=== PATIENT | female | born 1995 | race Caucasian/White ===

== ENCOUNTER 2018-11-13 21:48 | Emergency (ER) | payer OTHER, SELFPAY ==
[2018-11-13 21:53] VITALS: BP 124/74; PULSE 98; RESP 20; TEMP 36.9; O2SAT 100
[2018-11-13 21:59] VITALS: PULSE 98; RESP 20; TEMP 36.9; O2SAT 100; BMI 32.2
--- NOTE | 2018-11-13 22:25 | DI.RAD.S_ITS ---
PROCEDURE: XR CHEST 2V INDICATIONS: chest pain TECHNIQUE: 2 views of the chest were acquired. COMPARISON: None. FINDINGS: Surgical changes and devices: None. Lungs and pleura: Lungs are clear. No pleural effusions or pneumothorax. Mediastinum: Mediastinal contours are normal. Heart size is normal. Bones and chest wall: No suspicious bony abnormalities. Soft tissues appear unremarkable. IMPRESSION: No acute cardiopulmonary disease. Dictated by: Seth Garcias M.D. on 11/14/2018 at 9:37 Approved by: Seth Garcias M.D. on 11/14/2018 at 9:37
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
[2018-11-13 23:24] VITALS: BP 115/63; PULSE 85; RESP 15; TEMP 36.9; O2SAT 100
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
== END 2018-11-13 23:25 | disposition home or self-care (01) ==
PROVIDERS: Emergency Provider Emergency Medicine
DX: R07.89 Other chest pain (principal)
CPT/HCPCS: 71046; 93005; 99282; 99284

== ENCOUNTER 2018-11-29 10:12 | Emergency (ER) | payer OTHER, SELFPAY ==
[2018-11-29 10:18] VITALS: BP 110/76; PULSE 86; RESP 16; TEMP 36.6; O2SAT 100
--- NOTE | 2018-11-29 12:47 | ED.HA ---
HPI - Headache <PIYUSH Bobby - Last Filed: 11/29/18 21:54> General Chief Complaint: Headache Stated Complaint: migraine Time Seen by Provider: 11/29/18 12:47 Source: patient Mode of arrival: ambulatory Limitations: no limitations History of Present Illness HPI Narrative: 23-year-old female with history of migraines as a nonsmoker for complaint of having migraine headache that started this morning at about 630. She states she has had nausea and vomiting with the headache no aura. She states that her headache is typical of her migraines. She states that she used to have a prescription for Maxalt which helps with her headaches however she does not have a prescription at this time. She desires have a prescription for the Maxalt filled. She states that she needs to get back to work and would rather have a prescription for Maxalt and not IV fluids and migraine headache cocktail medications at this time. She has not had any nausea vomiting for the last 3 hr she states she can tolerate p.o. intake and that her symptoms are better at this time. No fevers or chills no head trauma. No other concerns or complaints at this timeframe. She denies any stressors relievers of her symptoms. Complaint: migraine Related Data Previous Rx's Medication Instructions Recorded rizatriptan [Maxalt-BUSINESS INTELLIGENCE ANALYST] See Rx Instructions .ROUTE 11/29/18 .COMPLEX #20 tab Allergies Allergy/AdvReac Type Severity Reaction Status Date / Time No Known Drug Allergies Allergy Verified 11/29/18 10:17 Review of Systems <PIYUSH Bobby - Last Filed: 11/29/18 21:54> Constitutional Denies chills, Denies fever(s), Denies lethargy and Denies weakness Eyes Denies change in vision, Denies eye discharge, Denies irritation and Denies loss of vision ENT Ears, Nose, Mouth, and Throat: Denies change in voice, Denies neck pain and Denies sore throat Cardiovascular Denies chest pain, Denies irregular heart rhythm, Denies lightheadedness, Denies palpitations, Denies dyspnea, Denies dyspnea on exertion and Denies orthopnea Respiratory Denies cough, Denies dyspnea, Denies dyspnea on exertion and Denies wheezing Gastrointestinal Gastrointestinal: Denies abdominal pain, Denies change in bowel habits, Denies diarrhea, Reports nausea and Reports vomiting Genitourinary Denies hematuria, Denies flank pain, Denies urinary incontinence and Denies urinary urgency Musculoskeletal Denies neck pain Integumentary/Breasts Denies pruritus, Denies erythema, Denies rash and Denies wounds Neurologic Denies confusion, Denies loss of vision and Denies weakness Psychiatric Denies anxiety, Denies confusion, Denies depression, Denies homicidal ideation and Denies suicidal ideation Endocrine Denies palpitations Hematologic/Lymphatic Denies easy bruising Allergic/Immunologic Denies wheezing PFSH <PIYUSH Bobby - Last Filed: 11/29/18 21:54> Social History Smoking Status: Never smoker Social History Smoking Status: Never smoker Exam <PIYUSH Bobby - Last Filed: 11/29/18 21:54> Initial Vital Signs Initial Vital Signs: Vital Signs Temperature 97.9 F 11/29/18 10:18 Pulse Rate 86 11/29/18 10:18 Respiratory Rate 16 11/29/18 10:18 Blood Pressure 110/76 11/29/18 10:18 Pulse Oximetry 100 11/29/18 10:18 Const General: cooperative and well developed Nutritional Appearance: well nourished Orientation: alert, awake, oriented x3 and not confused HENPR Mouth: oral mucosae normal and moist mucous membranes Eyes Conjunctivae: conjunctivae normal Sclera: sclerae normal Pupils: PERRL EOM: EOM intact bilaterally Resp Effort & Inspection: normal respiratory effort, able to speak in complete sentences, no respiratory distress and no use of accessory muscles Auscultation: clear to auscultation bilaterally, no rales, no rhonchi and no wheezes Cardio Rate: regular rate Rhythm: regular rhythm Heart Sounds: no click, no gallops, no murmurs and no rubs Pulses: normal peripheral pulses Skin General: no rashes or lesions noted, No jaundice and No petechiae Neuro General: alert, oriented x3, gait normal and no focal motor deficits Speech: speech normal <David Thomas DO - Last Filed: 11/30/18 20:49> Initial Vital Signs Initial Vital Signs: Vital Signs Temperature 97.9 F 11/29/18 10:18 Pulse Rate 86 11/29/18 10:18 Respiratory Rate 16 11/29/18 10:18 Blood Pressure 110/76 11/29/18 10:18 Pulse Oximetry 100 11/29/18 10:18 Course <PIYUSH Bobby - Last Filed: 11/29/18 21:54> Orders Ordered: Discontinued Medications Ondansetron HCl (Zofran Odt) 4 mg SL NOW ONE Stop: 11/29/18 12:55 Last Admin: 11/29/18 12:58 Dose: 4 mg Vital Signs - 8 hr 11/29/18 10:18 Temperature 97.9 F Pulse Rate 86 Respiratory Rate 16 Blood Pressure 110/76 Pulse Oximetry 100 <David Thomas DO - Last Filed: 11/30/18 20:49> Orders Ordered: Discontinued Medications Ondansetron HCl (Zofran Odt) 4 mg SL NOW ONE Stop: 11/29/18 12:55 Last Admin: 11/29/18 12:58 Dose: 4 mg Vital Signs - 8 hr 11/29/18 10:18 Temperature 97.9 F Pulse Rate 86 Respiratory Rate 16 Blood Pressure 110/76 Pulse Oximetry 100 MDM - Headache <PIYUSH Bobby - Last Filed: 11/29/18 21:54> MDM Narrative Medical decision making narrative: Patient was given some Zofran ODT in the emergency room was able to tolerate fluids. Prescription of Maxalt is provided. Follow up with primary care provider the next few days for re-evaluation. For any worsening symptoms return to the emergency room. Signs and symptoms presents as migraine headache typical of her migraine headache history. Discharge Plan Departure Patient Disposition: Home Clinical Impression: Migraine Qualifiers: Migraine type: unspecified Status migrainosus presence: without status migrainosus Intractability: not intractable Qualified Code(s): G43.909 - Migraine, unspecified, not intractable, without status migrainosus Discharge Date/Time: 11/29/18 13:13 Interventions: ED Discharge Assessment Last Done: 11/29/18 13:13 Instructions: DI for Migraine Activity Restrictions/Additional Instructions: Signs and symptoms presents as a migraine headache. Plenty of fluids and rest ibuprofen as needed for any discomfort. Prescription Maxalt is placed use as directed. Follow up with primary care provider next few days for re-evaluation. For any worsening symptoms return to the emergency room. Prescriptions: New rizatriptan [Maxalt-BUSINESS INTELLIGENCE ANALYST] 10 mg tablet,disintegrating See Rx Instructions .ROUTE .COMPLEX Qty: 20 RF: 0 Referrals: [facility] [Provider Group] <David Thomas DO - Last Filed: 11/30/18 20:49> Cosign ED Attending Kristopher Attestation: I was immediately available in the department for consultation. Documentation has been reviewed. I agree with assessment and plan.
[2018-11-29] MEDS: ONDANSETRON 4 MG ODT SL (12:58)
--- NOTE | 2018-11-29 13:01 | ED_ITS ---
HPI - Headache <PIYUSH Bobby - Last Filed: 11/29/18 21:54> General Chief Complaint: Headache Stated Complaint: migraine Time Seen by Provider: 11/29/18 12:47 Source: patient Mode of arrival: ambulatory Limitations: no limitations History of Present Illness HPI Narrative: 23-year-old female with history of migraines as a nonsmoker for complaint of having migraine headache that started this morning at about 630. She states she has had nausea and vomiting with the headache no aura. She states that her headache is typical of her migraines. She states that she used to have a prescription for Maxalt which helps with her headaches however she does not have a prescription at this time. She desires have a prescription for the Maxalt filled. She states that she needs to get back to work and would rather have a prescription for Maxalt and not IV fluids and migraine headache cocktail medications at this time. She has not had any nausea vomiting for the last 3 hr she states she can tolerate p.o. intake and that her symptoms are better at this time. No fevers or chills no head trauma. No other concerns or complaints at this timeframe. She denies any stressors relievers of her symptoms. Complaint: migraine Related Data Previous Rx's Medication Instructions Recorded rizatriptan [Maxalt-COAL OR ORE CONTROLLER] See Rx Instructions .ROUTE 11/29/18 .COMPLEX #20 tab Allergies Allergy/AdvReac Type Severity Reaction Status Date / Time No Known Drug Allergies Allergy Verified 11/29/18 10:17 Review of Systems <PIYUSH Bobby - Last Filed: 11/29/18 21:54> Constitutional Denies chills, Denies fever(s), Denies lethargy and Denies weakness Eyes Denies change in vision, Denies eye discharge, Denies irritation and Denies loss of vision ENT Ears, Nose, Mouth, and Throat: Denies change in voice, Denies neck pain and Denies sore throat Cardiovascular Denies chest pain, Denies irregular heart rhythm, Denies lightheadedness, Denies palpitations, Denies dyspnea, Denies dyspnea on exertion and Denies orthopnea Respiratory Denies cough, Denies dyspnea, Denies dyspnea on exertion and Denies wheezing Gastrointestinal Gastrointestinal: Denies abdominal pain, Denies change in bowel habits, Denies diarrhea, Reports nausea and Reports vomiting Genitourinary Denies hematuria, Denies flank pain, Denies urinary incontinence and Denies urinary urgency Musculoskeletal Denies neck pain Integumentary/Breasts Denies pruritus, Denies erythema, Denies rash and Denies wounds Neurologic Denies confusion, Denies loss of vision and Denies weakness Psychiatric Denies anxiety, Denies confusion, Denies depression, Denies homicidal ideation and Denies suicidal ideation Endocrine Denies palpitations Hematologic/Lymphatic Denies easy bruising Allergic/Immunologic Denies wheezing PFSH <PIYUSH Bobby - Last Filed: 11/29/18 21:54> Social History Smoking Status: Never smoker Social History Smoking Status: Never smoker Exam <PIYUSH Bobby - Last Filed: 11/29/18 21:54> Initial Vital Signs Initial Vital Signs: Vital Signs Temperature 97.9 F 11/29/18 10:18 Pulse Rate 86 11/29/18 10:18 Respiratory Rate 16 11/29/18 10:18 Blood Pressure 110/76 11/29/18 10:18 Pulse Oximetry 100 11/29/18 10:18 Const General: cooperative and well developed Nutritional Appearance: well nourished Orientation: alert, awake, oriented x3 and not confused HENNH Mouth: oral mucosae normal and moist mucous membranes Eyes Conjunctivae: conjunctivae normal Sclera: sclerae normal Pupils: PERRL EOM: EOM intact bilaterally Resp Effort & Inspection: normal respiratory effort, able to speak in complete sentences, no respiratory distress and no use of accessory muscles Auscultation: clear to auscultation bilaterally, no rales, no rhonchi and no wheezes Cardio Rate: regular rate Rhythm: regular rhythm Heart Sounds: no click, no gallops, no murmurs and no rubs Pulses: normal peripheral pulses Skin General: no rashes or lesions noted, No jaundice and No petechiae Neuro General: alert, oriented x3, gait normal and no focal motor deficits Speech: speech normal <David Thomas DO - Last Filed: 11/30/18 20:49> Initial Vital Signs Initial Vital Signs: Vital Signs Temperature 97.9 F 11/29/18 10:18 Pulse Rate 86 11/29/18 10:18 Respiratory Rate 16 11/29/18 10:18 Blood Pressure 110/76 11/29/18 10:18 Pulse Oximetry 100 11/29/18 10:18 Course <PIYUSH Bobby - Last Filed: 11/29/18 21:54> Orders Ordered: Discontinued Medications Ondansetron HCl (Zofran Odt) 4 mg SL NOW ONE Stop: 11/29/18 12:55 Last Admin: 11/29/18 12:58 Dose: 4 mg Vital Signs - 8 hr 11/29/18 10:18 Temperature 97.9 F Pulse Rate 86 Respiratory Rate 16 Blood Pressure 110/76 Pulse Oximetry 100 <David Thomas DO - Last Filed: 11/30/18 20:49> Orders Ordered: Discontinued Medications Ondansetron HCl (Zofran Odt) 4 mg SL NOW ONE Stop: 11/29/18 12:55 Last Admin: 11/29/18 12:58 Dose: 4 mg Vital Signs - 8 hr 11/29/18 10:18 Temperature 97.9 F Pulse Rate 86 Respiratory Rate 16 Blood Pressure 110/76 Pulse Oximetry 100 MDM - Headache <PIYUSH Bobby - Last Filed: 11/29/18 21:54> MDM Narrative Medical decision making narrative: Patient was given some Zofran ODT in the emergency room was able to tolerate fluids. Prescription of Maxalt is provided. Follow up with primary care provider the next few days for re-evaluation. For any worsening symptoms return to the emergency room. Signs and symptoms presents as migraine headache typical of her migraine headache history. Discharge Plan Departure Patient Disposition: Home Clinical Impression: Migraine Qualifiers: Migraine type: unspecified Status migrainosus presence: without status migrainosus Intractability: not intractable Qualified Code(s): G43.909 - Migraine, unspecified, not intractable, without status migrainosus Discharge Date/Time: 11/29/18 13:13 Interventions: ED Discharge Assessment Last Done: 11/29/18 13:13 Instructions: DI for Migraine Activity Restrictions/Additional Instructions: Signs and symptoms presents as a migraine headache. Plenty of fluids and rest ibuprofen as needed for any discomfort. Prescription Maxalt is placed use as directed. Follow up with primary care provider next few days for re-evaluation. For any worsening symptoms return to the emergency room. Prescriptions: New rizatriptan [Maxalt-COAL OR ORE CONTROLLER] 10 mg tablet,disintegrating See Rx Instructions .ROUTE .COMPLEX Qty: 20 RF: 0 Referrals: [facility] [Provider Group] <David Thomas DO - Last Filed: 11/30/18 20:49> Cosign ED Attending Kristopher Attestation: I was immediately available in the department for consultation. Documentation has been reviewed. I agree with assessment and plan.
[2018-11-29 13:02] VITALS: BP 115/74; PULSE 77; RESP 16; O2SAT 99
== END 2018-11-29 13:13 | disposition home or self-care (01) ==
PROVIDERS: Emergency Provider Nurse Practitioner Family
DX: G43.909 Migraine, unspecified, not intractable, without status migrainosus (principal)
CPT/HCPCS: 99282

== ENCOUNTER 2019-01-06 18:51 | Emergency (ER) | payer OTHER, SELFPAY ==
[2019-01-06 19:00] VITALS: BP 132/75; PULSE 76; RESP 18; TEMP 36.8; O2SAT 100; BMI 32.8
--- NOTE | 2019-01-06 19:33 | ED_ITS ---
HPI - Back Pain/Injury <Shazia Ortiz PA-C - Last Filed: 01/06/19 22:11> General Chief Complaint: Back Pain/Injury Stated Complaint: back pain from working out Time Seen by Provider: 01/06/19 19:07 Source: patient Mode of arrival: ambulatory Limitations: physical limitation History of Present Illness HPI Narrative: This 23-year-old female was lifting heavy weights earlier this morning. She states she stood up from a bent position with leg extended and felt pops in her lower back, then went to the floor due to pain it. She states friends helped her up and she was able to walk. She tried lidocaine patches and slept for awhile, but after awakening had great difficulty getting out of bed. She states pain is in the middle of her low back and more on the left side. Pain worsens with any movement or sitting with her weight even, better with pressure off her back and sitting still. She denies any radiation of pain into her legs, states it can wrap around to her hip area a little bit. She denies any weakness or paresthesia in her legs, no numbness in her groin. She denies any change in bowel or bladder habits or any other new symptoms. She denies any possibility of Related Data Previous Rx's Medication Instructions Recorded rizatriptan [Maxalt-SQL PROGRAMMER ANALYST] See Rx Instructions .ROUTE 11/29/18 .COMPLEX #20 tab cyclobenzaprine 10 mg PO Q8H PRN #14 tab 01/06/19 meloxicam 15 mg PO DAILY #14 tab 01/06/19 Allergies Allergy/AdvReac Type Severity Reaction Status Date / Time No Known Drug Allergies Allergy Verified 11/29/18 10:17 Review of Systems <Shazia Ortiz PA-C - Last Filed: 01/06/19 22:11> Review of Systems ROS Unobtainable: All systems reviewed & are unremarkable except as noted in HPI and below PFSH <Shazia Ortiz PA-C - Last Filed: 01/06/19 22:11> Social History Smoking Status: Never smoker Exam <KERON Lamas Last Filed: 01/06/19 22:11> Narrative Exam Narrative: GENERAL APPEARANCE: Patient appears uncomfortable but in NAD PULMONARY: Lungs clear to auscultation bilaterally CV: Regular rhythm regular without murmur, normal S1 and S2, no S3 or S4 MUSCULOSKELETAL: She has moderate tenderness over the mid to inferior lumbar spine, paraspinal musculature, and more tenderness over the corresponding are musculature most at the mid scapular line on the left where the muscles are palpably tight. No tenderness on the right. Lower extremity strength 5/5 bilateral hip flexors, knee extensors, foot plantar flexion. Negative straight leg raise. After medicines she is able to get up and move on her own, still difficulty moving from trunk flexion to extension. NEUROLOGIC: Bilateral patellar and Achilles DTRs 1+ Initial Vital Signs Initial Vital Signs: Vital Signs Temperature 98.3 F 01/06/19 19:00 Pulse Rate 76 01/06/19 19:00 Respiratory Rate 18 01/06/19 19:00 Blood Pressure 132/75 01/06/19 19:00 Pulse Oximetry 100 01/06/19 19:00 <Jimi Curiel DO - Last Filed: 01/06/19 22:20> Initial Vital Signs Initial Vital Signs: Vital Signs Temperature 98.3 F 01/06/19 19:00 Pulse Rate 76 01/06/19 19:00 Respiratory Rate 18 01/06/19 19:00 Blood Pressure 132/75 01/06/19 19:00 Pulse Oximetry 100 01/06/19 19:00 Course <Shazia Ortiz PA-C - Last Filed: 01/06/19 22:11> Orders Ordered: Discontinued Medications Hydrocodone Bitart/Acetaminophen ([place] 5/325) 2 tab PO NOW ONE Stop: 01/06/19 21:03 Last Admin: 01/06/19 21:11 Dose: 2 tab Hydrocodone Bitart/Acetaminophen (Vicodin Prepack) 1 bottle MISC SEEINSTR ONE Stop: 01/06/19 21:54 Cyclobenzaprine HCl (Flexeril) 10 mg PO NOW ONE Stop: 01/06/19 19:30 Last Admin: 01/06/19 19:38 Dose: 10 mg Cyclobenzaprine HCl (Flexeril 10 Mg Prepack) 1 bottle MISC SEEINSTR ONE Stop: 01/06/19 21:54 Ketorolac Tromethamine (Toradol) 60 mg IM NOW ONE Stop: 01/06/19 19:30 Last Admin: 01/06/19 19:38 Dose: 60 mg Vital Signs - 8 hr 01/06/19 19:00 01/06/19 22:05 Temperature 98.3 F Pulse Rate 76 72 Respiratory Rate 18 15 Blood Pressure 132/75 Blood Pressure [Left Arm] 105/63 Pulse Oximetry 100 98 <Jimi Curiel DO - Last Filed: 01/06/19 22:20> Orders Ordered: Discontinued Medications Hydrocodone Bitart/Acetaminophen ([place] 5/325) 2 tab PO NOW ONE Stop: 01/06/19 21:03 Last Admin: 01/06/19 21:11 Dose: 2 tab Hydrocodone Bitart/Acetaminophen (Vicodin Prepack) 1 bottle MISC SEEINSTR ONE Stop: 01/06/19 21:54 Cyclobenzaprine HCl (Flexeril) 10 mg PO NOW ONE Stop: 01/06/19 19:30 Last Admin: 01/06/19 19:38 Dose: 10 mg Cyclobenzaprine HCl (Flexeril 10 Mg Prepack) 1 bottle MISC SEEINSTR ONE Stop: 01/06/19 21:54 Ketorolac Tromethamine (Toradol) 60 mg IM NOW ONE Stop: 01/06/19 19:30 Last Admin: 01/06/19 19:38 Dose: 60 mg Vital Signs - 8 hr 01/06/19 19:00 01/06/19 22:05 Temperature 98.3 F Pulse Rate 76 72 Respiratory Rate 18 15 Blood Pressure 132/75 Blood Pressure [Left Arm] 105/63 Pulse Oximetry 100 98 Discharge Plan Departure Patient Disposition: Home Clinical Impression: Strain of lumbar region Qualifiers: Encounter type: initial encounter Qualified Code(s): S39.012A - Strain of muscle, fascia and tendon of lower back, initial encounter Instructions: DI for Back Strain or Sprain Activity Restrictions/Additional Instructions: I think that you have strained muscles in your low back, especially on the left side, due to the lifting injury today. You can continue the pain pills that we gave you this evening or tomorrow if needed (hydrocodone/acetaminophen). You can also take another 1 of the muscle relaxant (cyclobenzaprine) when you get home if you needed, and continue 1 every 8 hr as needed. You should not drive while you are taking either of these as they can make you sleepy. You can use pain patches or topical medicines as you wish, and I have also sent in a prescription for more of the muscle relaxants and an anti-inflammatory pain reliever called meloxicam to your pharmacy to take once daily (you can pick that up tomorrow). Please follow up with your PCP Tuesday or Tuesday for reassessment. As we talked about, you should return here if you have any acutely worsening symptoms, or new symptoms such as numbness or weakness in her extremities or difficulty urinating Prescriptions: New cyclobenzaprine 10 mg tablet 10 mg PO Q8H PRN (Reason: muscle spasm) Qty: 14 RF: 0 meloxicam 15 mg tablet 15 mg PO DAILY Qty: 14 RF: 0 No Action rizatriptan [Maxalt-SQL PROGRAMMER ANALYST] 10 mg tablet,disintegrating See Rx Instructions .ROUTE .COMPLEX Qty: 20 RF: 0 [place] [facility] [place] Forms: Work Release Note <Jimi Curiel DO - Last Filed: 01/06/19 22:20> Cosign ED Attending Luisature Attestation: I was available for consultation during this patient's emergency department encounter
[2019-01-06] MEDS: KETOROLAC 60 MG/2 ML VIAL IM (19:38)
[2019-01-06] MEDS: CYCLOBENZAPRINE 10 MG TABLET PO (19:38)
[2019-01-06] MEDS: HYDROCODONE/ACET 5/325 TABLET 2 TAB PO (21:11)
[2019-01-06 22:05] VITALS: BP 105/63; PULSE 72; RESP 15; O2SAT 98
[2019-01-06] MEDS: CYCLOBENZAPRINE 10 MG PREPACK 1 BOTTLE MISC (22:54)
[2019-01-06] MEDS: HYDROCODONE/ACET 5/325 PREPACK 1 BOTTLE MISC (22:54)
== END 2019-01-06 22:57 | disposition home or self-care (01) ==
PROVIDERS: Emergency Provider Internal Medicine
DX: S39.012A Strain of muscle, fascia and tendon of lower back, initial encounter (principal)
CPT/HCPCS: 96374; 99282; 99284; J1885

== ENCOUNTER → 2019-07-17 14:27 | Outpatient (CLI) | payer BC, SELFPAY ==
[2019-07-17 14:40] LABS: Strep Grp A by PCR Rapid Negative
== END ==
PROVIDERS: Visit Provider Physician Assistant
DX: J02.9 Acute pharyngitis, unspecified (principal)
CPT/HCPCS: 87070; 87077; 87147; 87186; 87651

== ENCOUNTER 2020-06-19 11:21 | Emergency (ER) | payer BC, SELFPAY ==
[2020-06-19 11:47] VITALS: BP 119/62; PULSE 78; RESP 15; O2SAT 100
--- NOTE | 2020-06-19 11:48 | PC.NURSE ---
pt states when pain started it was 8/10.
--- NOTE | 2020-06-19 11:52 | DI.RAD.S_ITS ---
PROCEDURE: XR CHEST 1V INDICATIONS: Chest pain TECHNIQUE: One view of the chest was acquired. COMPARISON: [facility], CR, XR CHEST 2V, 11/13/2018, 22:38. FINDINGS: Surgical changes and devices: None. Lungs and pleura: Lungs are clear. No pleural effusions or pneumothorax. Mediastinum: Mediastinal contours appear normal. Heart size is normal. Bones and chest wall: No suspicious bony lesions. Overlying soft tissues appear unremarkable. IMPRESSION: Normal for age, source of current chest pain symptoms is not seen. Dictated by: Mendoza Baca M.D. on 06/19/2020 at 12:56 Approved by: Mendoza Baca M.D. on 06/19/2020 at 12:56
[2020-06-19 12:14] LABS: Add Manual Diff / Slide Review NO; Basophils Absolute Auto 0 /uL (0-100); Basophils Percent Auto 0.7 % (0-2); Eosinophils Absolute Auto 200 /uL (0-450); Eosinophils Percent Auto 2.6 % (2-4); Hematocrit 36.8 % (36-46); Hemoglobin 12.9 g/dL (12.0-16.0); Lymphocytes Absolute Auto 1700 /uL (1100-4500); Lymphocytes Percent Auto 24.7 % (25-40); Mean Corpuscular HGB Conc 35.1 % (30-36); Mean Corpuscular Hemoglobin 31.6 PG (26-34); Monocytes Absolute Auto 600 /uL (0-900); Monocytes Percent Auto 8.1 % (3-14); Neutrophils Absolute Auto 4500 /uL (1500-7000); Neutrophils Percent Auto 63.9 % (50-75); Platelet Count 315 X10^3/uL (150-400); Red Blood Cell Count 4.09 X10^6/uL (4.0-5.2); Red Cell Distribution Width 12.3 % (11.6-14.8)
--- NOTE | 2020-06-19 12:21 | ED_ITS ---
HPI - Chest Pain <PIYUSH Alcantar - Last Filed: 06/19/20 18:49> General Chief Complaint: Chest Pain Stated Complaint: chest pain Time Seen by Provider: 06/19/20 11:42 Source: patient Mode of arrival: Ambulatory Limitations: no limitations History of Present Illness HPI narrative: 25yo female presents to the emergency department for left-sided chest pain. She states she was at, she did a battery up and noticed a sudden onset of dull aching left-sided pain. Patient states the pain was initially intense at a 8/10 on her left side and radiated down her left arm. She noticed some numbness and tingling to her left arm. She took some aspirin inside down and this significantly decreased the pain. Patient states on the way to the emergency department the pain was completely resolved. She denies any aggravating aspects of the pain, reports alleviating symptoms with aspirin. She denies any pain at this time, denies any numbness or tingling at this time. Patient denies any major medical issues or significant allergies. Patient denies any chest pain at this time, shortness of breath, dizziness, nausea, vomiting, diarrhea, or diaphoresis. Related Data Previous Rx's Medication Instructions Recorded rizatriptan [Maxalt-INSTITUTIONAL COMMODITY ANALYST] See Rx Instructions .ROUTE 11/29/18 .COMPLEX #20 tab meloxicam 15 mg PO DAILY #14 tab 01/06/19 Allergies Allergy/AdvReac Type Severity Reaction Status Date / Time No Known Drug Allergies Allergy Verified 07/17/19 14:33 Review of Systems <PIYUSH Alcantar - Last Filed: 06/19/20 18:49> Review of Systems Narrative: REVIEW OF SYSTEMS: GENERAL: Denies fever or chills. HENT: No head trauma. EYES: No loss of vision, double vision, eye pain, or irritation. CARDIOVASCULAR: Reports left-sided chest pain, see HPI. RESPIRATORY: No shortness of breath or cough. GASTROINTESTINAL: No nausea, vomiting, diarrhea, or constipation. MUSCULOSKELETAL: No pain, weakness, or deformities. INTEGUMENTARY: No rash, lesions, or pruritus. NEURO: No numbness or tingling. PSYCH: No behavior or mood changes. Patient History <PIYUSH Alcantar - Last Filed: 06/19/20 18:49> Medical History No significant medical problems (Acute) Social History Smoking Status: Current every day smoker Smoking Status: Current every day smoker alcohol intake frequency: 0-2 drinks per day Substance Use Type: does not use Exam <PIYUSH Alcantar - Last Filed: 06/19/20 18:49> Initial Vital Signs Initial Vital Signs: Vital Signs Pulse Rate 78 06/19/20 11:47 Respiratory Rate 15 06/19/20 11:47 Blood Pressure 119/62 06/19/20 11:47 Pulse Oximetry 100 06/19/20 11:47 PHYSICAL EXAMINATION: GENERAL: Well groomed, alert, and cooperative. Answers questions promptly and appropriately. Vital signs noted. HENT: Normocephalic, atraumatic. Ear canals patent. Oral mucosa is pink and moist. EYES: Conjunctiva pink, sclera white, no periorbital swelling. CHEST: Normal to inspection and without deformities. No pain with palpation to sternal-costal margins. Very slight pain with palpation of left ribs along the axillary line CARDIOVASCULAR: S1 and S2 sounds normal. Regular rate and rhythm, no murmurs, clicks, or bruits. No pedal edema. RESPIRATORY: Normal respiratory rate, trachea midline, airway patent. No str idor, nasal flaring or accessory muscle use. Lungs are clear in all roger without wheeze, rhonchi, or crackles. GASTROINTESTINAL: Bowel sounds normoactive. Abdomen is soft and non-tender. No organomegaly. MUSCULOSKELETAL: Normal gait and coordination. Equal tone and mass bilaterally. Equal business taxes specialist strength bilaterally, equal deltoid and forearm strength. EXTREMITIES: CMS intact. Moves all extremities. SKIN: Warm, dry, soft, appropriate color for ethnicity. No lesions, rashes, or wounds. NEURO: Alert and Oriented X 3. Good coordination. No ataxia, or sensory deficits, or cognitive issues. Light touch sensation intact to upper extremities bilaterally. PSYCH: Appropriate affect and mood. <Sidney Kelley MD - Last Filed: 06/21/20 07:49> Initial Vital Signs Initial Vital Signs: Vital Signs Pulse Rate 78 06/19/20 11:47 Respiratory Rate 15 06/19/20 11:47 Blood Pressure 119/62 06/19/20 11:47 Pulse Oximetry 100 06/19/20 11:47 Scores <Alyson PIYUSH Alonso - Last Filed: 06/19/20 18:49> HEART Score Heart Score history: Slightly Suspicious Heart Score EKG: Normal Heart Score Age: < 45 years old Heart Score risk factors: No known risk factors Heart Score troponin: < or = to normal limit Heart Score Total: 0 Course <Alyson PIYUSH Alonso - Last Filed: 06/19/20 18:49> Course Course Narrative: Patient continued to deny chest pain throughout the stay in the emergency department. Orders Ordered: ED Orders 06/19/20 11:27 EKG-12 Lead Stat 06/19/20 11:52 XR chest 1V Stat 06/19/20 12:06 Complete Blood Count AUTO DIFF Stat Comprehensive Metabolic Panel Stat Lipase Stat Troponin & CK Cardiac Panel Stat Vital Signs Vital signs: Vital Signs - 8 hr 06/19/20 11:47 06/19/20 13:32 Pulse Rate 78 79 Respiratory Rate 15 Blood Pressure 119/62 103/67 Pulse Oximetry 100 100 <Sidney Kelley MD - Last Filed: 06/21/20 07:49> Orders Ordered: ED Orders 06/19/20 11:27 EKG-12 Lead Stat 06/19/20 11:52 XR chest 1V Stat 06/19/20 12:06 Complete Blood Count AUTO DIFF Stat Comprehensive Metabolic Panel Stat Lipase Stat Troponin & CK Cardiac Panel Stat Vital Signs Vital signs: Vital Signs - 8 hr 06/19/20 11:47 06/19/20 13:32 Pulse Rate 78 79 Respiratory Rate 15 Blood Pressure 119/62 103/67 Pulse Oximetry 100 100 MDM - Chest Pain <Alyson PIYUSH Alonso - Last Filed: 06/19/20 18:49> Medical Records Data Attestation: I reviewed the patient's medical records. Lab Data Attestation: I reviewed the patient's lab results. Result diagrams: 06/19/20 12:06 06/19/20 12:06 Labs: Lab Results 06/19/20 06/19/20 Range/Units 12:06 12:06 WBC 7.0 (4.5-11.0) X10^3/uL RBC 4.09 (4.0-5.2) X10^6/uL Hgb 12.9 (12.0-16.0) g/dL Hct 36.8 (36-46) % MCV 90.0 (80-100) fL MCH 31.6 (26-34) PG MCHC 35.1 (30-36) % RDW 12.3 (11.6-14.8) % Plt Count 315 (150-400) X10^3/uL Neut % (Auto) 63.9 (50-75) % Lymph % (Auto) 24.7 L (25-40) % Foster % (Auto) 8.1 (3-14) % Eos % (Auto) 2.6 (2-4) % Baso % (Auto) 0.7 (0-2) % Neut # (Auto) 4500 (3090-1349) /uL Lymph # (Auto) 1700 (6687-7490) /uL Foster # (Auto) 600 (0-900) /uL Eos # (Auto) 200 (0-450) /uL Baso # (Auto) 0 (0-100) /uL Sodium 139 (137-145) mmol/L Potassium 3.9 (3.4-5.1) mmol/L Chloride 106 (98-107) mmol/L Carbon Dioxide 28 (22-32) mmol/L BUN 10 (7-17) mg/dL Creatinine 0.79 (0.52-1.04) mg/dL Estimated GFR > 60.0 (>60) mL/min BUN/Creatinine Ratio 12.7 (6-22) Glucose 82 (70-100) mg/dL Calcium 9.3 (8.4-10.2) mg/dL Total Bilirubin 0.3 (0.2-1.3) mg/dL AST 26 (14-36) IU/L ALT 30 (<35) IU/L Alkaline Phosphatase 88 (38-126) U/L Total Creatine Kinase 80 (30-135) U/L CK-MB (CK-2) TNP CK-MB (CK-2) Rel Index TNP Troponin I < 0.012 (0.01-0.034) ng/mL Total Protein 7.7 (6.3-8.2) g/dL Albumin 4.3 (3.5-5.0) g/dL Globulin 3.4 (1.7-4.1) g/dL Albumin/Globulin Ratio 1.3 (1.0-2.8) Lipase 49 (23-300) U/L Imaging Data Chest x-ray: Radiologist's Impression: [address] [address] XRay Report Signed Patient: Mulu Padilla LMR#: [id number] : 1995Acct:[id number] Age/Sex: 25 / FDate of Service: 06/19/20 Loc: ED Accession Number: [id number] Procedure: XR chest 1V Ordering Provider: Alyson Alonso PROCEDURE: XR CHEST 1V INDICATIONS: Chest pain TECHNIQUE: One view of the chest was acquired. COMPARISON: [facility], CR, XR CHEST 2V, 11/13/2018, 22:38. FINDINGS: Surgical changes and devices: None. Lungs and pleura: Lungs are clear. No pleural effusions or pneumothorax. Mediastinum: Mediastinal contours appear normal. Heart size is normal. Bones and chest wall: No suspicious bony lesions. Overlying soft tissues appear unremarkable. IMPRESSION: Normal for age, source of current chest pain symptoms is not seen. Dictated by: Mendoza Baca M.D. on 06/19/2020 at 12:56 Approved by: Mendoza Baca M.D. on 06/19/2020 at 12:56 ECG Data Interpretation: 1127: Normal sinus rhythm, rate 73, OH interval 144, QTC 387. No ST elevation or ST depression. No T-wave abnormality. EKG also viewed by Dr. Kelley per protocol. MDM Narrative Medical decision making narrative: The 25-year-old female presenting to the emergency department for left-sided chest pain after picking up a battery. I suspect that patient's pain is most likely musculoskeletal in nature given sharp, sudden onset after lifting a battery, and resolution of pain after rest. Less likely cardiac in nature given normal EKG, heart score of 0, negative x- ray, unremarkable cardiac enzyme labs. Less likely other etiologies such as abdominal etiology due to lack of abdominal pain with examination and normal labs. Lung sounds within normal limits, chest x-ray negative for any infections. Return precautions given for new or worsening symptoms. Patient agreed to plan of care verbalized understanding. <Sidney Kelley MD - Last Filed: 06/21/20 07:49> Lab Data Labs: Lab Results 06/19/20 06/19/20 Range/Units 12:06 12:06 WBC 7.0 (4.5-11.0) X10^3/uL RBC 4.09 (4.0-5.2) X10^6/uL Hgb 12.9 (12.0-16.0) g/dL Hct 36.8 (36-46) % MCV 90.0 (80-100) fL MCH 31.6 (26-34) PG MCHC 35.1 (30-36) % RDW 12.3 (11.6-14.8) % Plt Count 315 (150-400) X10^3/uL Neut % (Auto) 63.9 (50-75) % Lymph % (Auto) 24.7 L (25-40) % Foster % (Auto) 8.1 (3-14) % Eos % (Auto) 2.6 (2-4) % Baso % (Auto) 0.7 (0-2) % Neut # (Auto) 4500 (7379-6476) /uL Lymph # (Auto) 1700 (5036-5881) /uL Foster # (Auto) 600 (0-900) /uL Eos # (Auto) 200 (0-450) /uL Baso # (Auto) 0 (0-100) /uL Sodium 139 (137-145) mmol/L Potassium 3.9 (3.4-5.1) mmol/L Chloride 106 (98-107) mmol/L Carbon Dioxide 28 (22-32) mmol/L BUN 10 (7-17) mg/dL Creatinine 0.79 (0.52-1.04) mg/dL Estimated GFR > 60.0 (>60) mL/min BUN/Creatinine Ratio 12.7 (6-22) Glucose 82 (70-100) mg/dL Calcium 9.3 (8.4-10.2) mg/dL Total Bilirubin 0.3 (0.2-1.3) mg/dL AST 26 (14-36) IU/L ALT 30 (<35) IU/L Alkaline Phosphatase 88 (38-126) U/L Total Creatine Kinase 80 (30-135) U/L CK-MB (CK-2) TNP CK-MB (CK-2) Rel Index TNP Troponin I < 0.012 (0.01-0.034) ng/mL Total Protein 7.7 (6.3-8.2) g/dL Albumin 4.3 (3.5-5.0) g/dL Globulin 3.4 (1.7-4.1) g/dL Albumin/Globulin Ratio 1.3 (1.0-2.8) Lipase 49 (23-300) U/L Discharge Plan Departure Patient Disposition: Home Clinical Impression: Atypical chest pain, Rib pain on left side Discharge Date/Time: 06/19/20 13:33 Activity Restrictions/Additional Instructions: Thank you for entrusting me with your care today. As discussed, your chest x- ray, EKG, and laboratory work are non-remarkable. I suspect your pain is most likely caused by nerve irritation or pulled muscle. Try not to lift any heavy objects with that arm or place anything above your head for the next few days. Take ibuprofen as needed for pain. Follow-up with your primary care provider in 1-2 weeks for further evaluation if symptoms continue. Return emergency department for any new or worsening symptoms. Prescriptions: No Action rizatriptan [Maxalt-INSTITUTIONAL COMMODITY ANALYST] 10 mg tablet,disintegrating See Rx Instructions .ROUTE .COMPLEX Qty: 20 RF: 0 meloxicam 15 mg tablet 15 mg PO DAILY Qty: 14 RF: 0 <Sidney Kelley MD - Last Filed: 06/21/20 07:49> Cosign ED Attending Cosignature Attestation: I was immediately available in the department for consultation. This documentation has been reviewed and I agree with assessment and plan. Supervised by Sidney Kelley MD
[2020-06-19 12:25] LABS: Alanine Aminotransferase 30 IU/L (<35); Albumin 4.3 g/dL (3.5-5.0); Albumin Globulin Ratio 1.3 (1.0-2.8); Alkaline Phosphatase 88 U/L (38-126); Aspartate Aminotransferase 26 IU/L (14-36); BUN Creatinine Ratio 12.7 (6-22); Bilirubin Total 0.3 mg/dL (0.2-1.3); Blood Urea Nitrogen 10 mg/dL (7-17); Calcium 9.3 mg/dL (8.4-10.2); Carbon Dioxide 28 mmol/L (22-32); Chloride 106 mmol/L (98-107); Creatine Kinase 80 U/L (30-135); Estimated Glomerular Filt Rate > 60.0 mL/min (>60); Globulin 3.4 g/dL (1.7-4.1); Glucose 82 mg/dL (70-100); HEMOLYSIS < 15 (0-50); Lipase 49 U/L (23-300); Potassium 3.9 mmol/L (3.4-5.1); Sodium 139 mmol/L (137-145); Total Protein 7.7 g/dL (6.3-8.2)
[2020-06-19 12:36] LABS: Troponin I < 0.012 ng/mL (0.01-0.034)
[2020-06-19 13:32] VITALS: BP 103/67; PULSE 79; O2SAT 100
== END 2020-06-19 13:33 | disposition home or self-care (01) ==
PROVIDERS: Emergency Provider Nurse Practitioner
DX: R07.89 Other chest pain (principal); R07.81 Pleurodynia
CPT/HCPCS: 36415; 71045; 80053; 82550; 83690; 84484; 85025; 93005; 99283; 99284

== ENCOUNTER 2023-03-23 17:08 | Emergency (ER) | payer BC, SELFPAY ==
[2023-03-23 17:12] VITALS: BP 114/78; PULSE 80; RESP 14; TEMP 36.7; O2SAT 99; BMI 30.9
--- NOTE | 2023-03-23 17:16 | ED_ITS ---
HPI - Back Pain/Injury <PIYUSH Marcial - Last Filed: 03/23/23 18:02> General Chief Complaint: Back Pain/Injury Stated Complaint: BACK INJURY T-1 Time Seen by Provider: 03/23/23 17:15 Source: patient History of Present Illness HPI Narrative: This is a 28-year-old female presents emergency department after she was splitting firewood yesterday, states that she had an exacerbation of her low back pain. She states that she went to her chiropractor and then also came in for evaluation due to her worsening low back pain. States she has not taken any medications prior to arrival, states that she has bilateral sciatica into both of her hips and partially down her leg. She denies any groin paresthesia, denies urinary or stool changes, denies any point tenderness along her spine, fever or chills. Related Data Previous Rx's Medication Instructions Recorded lidocaine 5 % topical patch 1 patch topical DAILY PRN back 03/23/23 (Lidoderm) pain #30 ea methocarbamol 500 mg tablet 500 mg PO TID PRN muscle spasm #20 03/23/23 tabs methocarbamol 500 mg tablet 500 mg PO TID PRN pain #14 tabs 03/23/23 prednisone 20 mg tablet 20 mg PO DAILY 5 days #5 tabs 03/23/23 Allergies Allergy/AdvReac Type Severity Reaction Status Date / Time No Known Drug Allergies Allergy Verified 07/17/19 14:33 Review of Systems <PIYUSH Marcial - Last Filed: 03/23/23 18:02> Review of Systems ROS Unobtainable: All systems reviewed & are unremarkable except as noted in HPI and below Patient History <PIYUSH Marcial - Last Filed: 03/23/23 18:02> Medical History No significant medical problems Social History Smoking Status: Current every day smoker Smoking Status: Current every day smoker alcohol intake frequency: 0-2 drinks per day Substance Use Type: does not use Exam <PIYUSH Marcial - Last Filed: 03/23/23 18:02> Narrative Exam Narrative: Reviewed vitals signs and nursing notes. General: Pleasant, sitting upright, in no acute distress, well groomed, afebrile HEENT: symmetrical facial expressions, moist mucous membranes, neck is supple CV: regular rate and rhythm, warm extremities Respiratory: normal work of breathing, without tachypnea or hypoxia. GI: abdomen soft, nondistended, without CVA tenderness bilaterally. MSK: moves all extremities, no weakness, normal tone, ambulatory without deficit, spine is nontender to palpation including the lumbar and sacrum, leg lift exacerbates symptoms Skin: brisk capillary refill, without rash or wound Neuro: clear speech and normal cognition, A&O x3, GCS 15, no focal motor or sensation deficits Initial Vital Signs Initial Vital Signs: Vital Signs Temperature 98.1 F 03/23/23 17:12 Pulse Rate 80 03/23/23 17:12 Respiratory Rate 14 03/23/23 17:12 Blood Pressure 114/78 03/23/23 17:12 Pulse Oximetry 99 03/23/23 17:12 Oxygen Delivery Method Room Air 03/23/23 17:12 <Sidney Kelley MD - Last Filed: 03/26/23 12:42> Initial Vital Signs Initial Vital Signs: Vital Signs Temperature 98.1 F 03/23/23 17:12 Pulse Rate 80 03/23/23 17:12 Respiratory Rate 14 03/23/23 17:12 Blood Pressure 114/78 03/23/23 17:12 Pulse Oximetry 99 03/23/23 17:12 Oxygen Delivery Method Room Air 03/23/23 17:12 Course <PIYUSH Marcial - Last Filed: 03/23/23 18:02> Orders Ordered: Discontinued Medications Acetaminophen (Acetaminophen 325 Mg Tablet) 650 mg PO NOW ONE Stop: 03/23/23 17:20 Last Admin: 03/23/23 17:23 Dose: 650 mg Documented By: ANH Ketorolac Tromethamine (Ketorolac 30 Mg/Ml Vial) 15 mg IM NOW ONE Stop: 03/23/23 17:17 Last Admin: 03/23/23 17:23 Dose: 15 mg Documented By: ANH Lidocaine (Lidocaine Patch 1 Each Adh..Patch) 1 each TOP NOW ONE Stop: 03/23/23 17:17 Last Admin: 03/23/23 17:24 Dose: 1 each Documented By: ANH Prednisone (Prednisone 20 Mg Tablet) 20 mg PO NOW ONE Stop: 03/23/23 17:17 Last Admin: 03/23/23 17:26 Dose: 20 mg Documented By: ANH Vital Signs Vital signs: Vital Signs - 8 hr 03/23/23 17:12 Temperature 98.1 F Pulse Rate 80 Respiratory Rate 14 Blood Pressure 114/78 Pulse Oximetry 99 Oxygen Delivery Method Room Air <Sidney Kelley MD - Last Filed: 03/26/23 12:42> Orders Ordered: Discontinued Medications Acetaminophen (Acetaminophen 325 Mg Tablet) 650 mg PO NOW ONE Stop: 03/23/23 17:20 Last Admin: 03/23/23 17:23 Dose: 650 mg Documented By: ANH Ketorolac Tromethamine (Ketorolac 30 Mg/Ml Vial) 15 mg IM NOW ONE Stop: 03/23/23 17:17 Last Admin: 03/23/23 17:23 Dose: 15 mg Documented By: ANH Lidocaine (Lidocaine Patch 1 Each Adh..Patch) 1 each TOP NOW ONE Stop: 03/23/23 17:17 Last Admin: 03/23/23 17:24 Dose: 1 each Documented By: ANH Prednisone (Prednisone 20 Mg Tablet) 20 mg PO NOW ONE Stop: 03/23/23 17:17 Last Admin: 03/23/23 17:26 Dose: 20 mg Documented By: ANH Vital Signs Vital signs: Vital Signs - 8 hr 03/23/23 17:12 Temperature 98.1 F Pulse Rate 80 Respiratory Rate 14 Blood Pressure 114/78 Pulse Oximetry 99 Oxygen Delivery Method Room Air MDM - Back Pain/Injury <PIYUSH Marcial - Last Filed: 03/23/23 18:02> Imaging Data Lumbar XR: Radiologist's Impression: PROCEDURE:? XR LUMBAR SPINE 2-3V ? INDICATIONS:? Exacerbation of low back pain ? TECHNIQUE:? 3 views of the lumbar spine were acquired.? ? COMPARISON:? None. ? FINDINGS:? ? Bones:? 5 [id number] vertebrae are present.? There is normal bony alignment.? No vertebral body compression fractures.? No suspicious bony lesions.? ? Soft tissues:? Overlying bowel gas pattern is normal.? No suspicious soft tissue calcifications.? ? IMPRESSION:? No acute osseous abnormality. If the symptoms persist, consider cross sectional imaging such as MRI or CT for further assessment. ? ? ? Approved by: Robles Avila M.D. on 03/23/2023 at 17:57? MDM Narrative Medical decision making narrative: Chief Complaint: Back pain Primary historian: Patient Multiple etiologies for patient's complaint considered including, but not limited to: disc injury/herniation, radiculopathy, muscular sprain, chronic pain, malignancy, spondyloarthropathy, nerve compression, acute fracture, urinary tract infection, osteoarthritis, degenerative disc disease, cauda equina, osteomyelitis, epidural abscess, spinal stenosis, ligamental injury. I have reviewed the patient's vital signs and nursing notes as well as prior records if available. Prior Charts reviewed: yes My interpretation of Imaging: Lumbar x-ray is negative for acute abnormality Course of care: Patient's pain was treated with Toradol, prednisone, lidocaine and Tylenol, she requests lumbar x-rays and CD with images, this was provided for her. Suspect likely musculoskeletal etiology and acute exacerbation of chronic low back pain. Patient's straight leg raise test was positive. No back pain red flags on history or physical. No history of IV substance use, or bony tenderness to palpation, no trauma, no bony tenderness to palpation, and are afebrile. No bowel or urinary incontinence or retention, no saddle anesthesia, no new/worsening distal weakness, decreased reflexes or foot drop. Pt is nontoxic appearing. Patient has soft tissue tenderness to palpation. Pt is neurovascularly intact distally, without decreased reflexes or strength, and without immunosuppression or evidence of infection, peritoneal signs, hypertensive crisis, incontinence, or meningeal signs. Patient's symptoms improved over duration of stay with above-stated therapies. Discharge diagnosis, return precautions and plan discussed with patient followed by verbalization of understanding. Questions are addressed and there is agreement with the plan and for follow-up with PCP and with Orthopedics for outpatient physical therapy and advanced imaging if indicated. Patient is appropriate for outpatient management. Social considerations that may affect disposition: none MIPS: This encounter doesn't have any diagnosis' associated with MIPS criteria. Questions are addressed and there is agreement with the plan and for follow-up. I consulted with the ED attending physician Dr. Kelley as needed for higher level of care considerations and they were available for discussion and recommendations regarding plan of care and diagnostic testing. Patient is appropriate for outpatient management. Discharge Plan Departure Patient Disposition: Home Clinical Impression: Acute bilateral low back pain with bilateral sciatica, Strain of lumbar region Instructions: DI for Back Pain With Sciatica Activity Restrictions/Additional Instructions: *You have been diagnosed with a flare of your low back pain causing bilateral sciatica. Please rest for the next 1-2 days, take medications with food and water, you may use relaxer as needed for spasm it will make you sleepy please on drive with this medication. Use Tylenol 650 mg and ibuprofen 600 mg together every 6 hours, lidocaine patches can be helpful, stay hydrated, avoid exerting yourself and follow-up with your primary care provider for referral to physical therapy. I hope you feel better soon and avoid strenuous activity for the next few days. You may make an appointment with the orthopedist for further evalu ation. X-ray did not show any evidence of spondylolisthesis. *What to do: *Please continue to take your regular medications as directed. [x ] New medication prescriptions sent to your pharmacy: [[facility] [place]] [ ] New medication written as a paper prescription [ ] No new medications given *Please call and schedule follow up with your primary care provider in 2-3 days, at least for an update. Let them know you were seen in the Emergency Department for the above problem. We will electronically transmit a record of today's note if your PCP or specialist is in our system. *If you do not have a primary care provider please contact [phone] to establish care with one of the [facility] primary care providers. *Return to the Emergency Department for worsening symptoms, inability to keep liquids down, fever greater than 101F, chills, or other concerning symptom. Prescriptions: New methocarbamol 500 mg tablet 500 mg PO TID PRN (Reason: pain) Qty: 14 0RF methocarbamol 500 mg tablet 500 mg PO TID PRN (Reason: muscle spasm) Qty: 20 0RF lidocaine [Lidoderm] 5 % adhesive patch,medicated 1 patch topical DAILY PRN (Reason: back pain) Qty: 30 0RF Rx Instructions: leave on most painful area for up to 12 hrs prednisone 20 mg tablet 20 mg PO DAILY 5 Days Qty: 5 0RF Referrals: [facility] [Provider Group] Stand Alone Forms: Patient Portal/API, Work Release Note <Sidney Kelley MD - Last Filed: 03/26/23 12:42> Cosign ED Attending Cosignature Attestation: I was immediately available in the department for consultation. This documentation has been reviewed and I agree with assessment and plan. Supervised by Sidney Kelley MD
[2023-03-23] MEDS: KETOROLAC 30 MG/ML VIAL 15 MG IM (17:23)
[2023-03-23] MEDS: ACETAMINOPHEN 325 MG TABLET 650 MG PO (17:23)
[2023-03-23] MEDS: LIDOCAINE PATCH 1 EACH ADH..PATCH TOP (17:24)
[2023-03-23] MEDS: predniSONE 20 MG TABLET PO (17:26)
--- NOTE | 2023-03-23 17:29 | DI.RAD.S_ITS ---
PROCEDURE: XR LUMBAR SPINE 2-3V INDICATIONS: Exacerbation of low back pain TECHNIQUE: 3 views of the lumbar spine were acquired. COMPARISON: None. FINDINGS: Bones: 5 [id number] vertebrae are present. There is normal bony alignment. No vertebral body compression fractures. No suspicious bony lesions. Soft tissues: Overlying bowel gas pattern is normal. No suspicious soft tissue calcifications. IMPRESSION: No acute osseous abnormality. If the symptoms persist, consider cross sectional imaging such as MRI or CT for further assessment. Approved by: Robles Avila M.D. on 03/23/2023 at 17:57
[2023-03-23 18:00] VITALS: BP 115/78; PULSE 72; RESP 18; O2SAT 99
== END 2023-03-23 18:05 | disposition home or self-care (01) ==
PROVIDERS: Emergency Provider Nurse Practitioner Critical Care Medicine
DX: S39.012A Strain of muscle, fascia and tendon of lower back, initial encounter (principal); M54.42 Lumbago with sciatica, left side; M54.41 Lumbago with sciatica, right side; X58.XXXA Exposure to other specified factors, initial encounter
CPT/HCPCS: 72100; 96372; 99283; 99284; J1885

== ENCOUNTER → 2025-01-24 17:43 | Outpatient (CLI) | payer BC, SELFPAY | PROVIDERS: Visit Provider Physician Assistant | DX: M54.9 Dorsalgia, unspecified (principal) | CPT/HCPCS: 87086 ==